=== PATIENT | male | born 1975 | race African-American/Black ===

== ENCOUNTER 2022-01-09 09:53 | Day surgery (SDC) | payer OTHER ==
[~2022-01-09] VITALS: Ht 188 cm; Wt 164.7 kg
[2022-01-09] MEDS ORDERED: fentaNYL citrate 0.05 MG/ML VIAL ONE (13:18)
[2022-01-09] MEDS ORDERED: LIDOCAINE 2% 100 MG/5 ML UJET TP ONE (13:18)
[2022-01-09] MEDS ORDERED: MIDAZOLAM 2 MG/2 ML VIAL ONE (13:33)
[2022-01-09] MEDS ORDERED: fentaNYL citrate 0.05 MG/ML VIAL IVP ONE (15:05)
== END 2022-01-09 15:20 | disposition home or self-care (01) ==
LOC: MOR 09:53 → MMU 10:29 → MOR 15:20
PROVIDERS: ATTEND Internal Medicine Gastroenterology
DX: Z12.11 Encounter for screening for malignant neoplasm of colon (principal); Z79.899 Other long term (current) drug therapy; Z20.822 Contact with and (suspected) exposure to COVID-19
CPT/HCPCS: 45378; 87426; J3010; J2250